=== PATIENT | male | born 1970 | race Caucasian/White ===

== ENCOUNTER 2016-12-06 17:15 | Emergency (ER) | payer OTHER ==
[~2016-12-06] VITALS: Ht 182.9 cm; Wt 105.2 kg
[2016-12-06] MEDS ORDERED: VITAMIN B-1100 MG PO (18:17)
[2016-12-06] MEDS ORDERED: FOLIC ACID1 M1 PO (18:17)
[2016-12-06] MEDS ORDERED: CHLORDIAZEPOXID25 M3 PO (18:17)
[2016-12-06] MEDS ORDERED: DAILY MULTIPLE1 EACH PO (18:17)
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
[2016-12-07 06:06] VITALS: BP 143/85
== END 2016-12-07 06:52 ==
LOC: ERH 17:15
DX: F10.10 Alcohol abuse, uncomplicated (principal)
CPT/HCPCS: J3101

== ENCOUNTER 2017-01-02 13:25 | Inpatient (IN) | payer OTHER ==
[~2017-01-02] VITALS: Ht 177.8 cm; Wt 100.4 kg
[~2017-01-02 13:25] MED LIST: CHLORDIAZEPOXID25 M3 PO; DAILY MULTIPLE1 EACH PO; FOLIC ACID1 M1 PO; VITAMIN B-1100 MG PO
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
[2017-01-02 14:00] VITALS: BP 165/80
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
--- NOTE | 2017-01-02 15:30 | NUR ---
LABS DRAWN AND SENT
[2017-01-02 15:54] LABS: ABSOLUTE BASOPHIL COUNT 0 /CUMM (0.0-0.2); ABSOLUTE EOSINOPHIL COUNT 0 /CUMM (0.0-0.7); ABSOLUTE GRANULOCYTE CT 1.6 /CUMM (1.4-6.5); ABSOLUTE LYMPH COUNT 1.2 /CUMM (1.2-3.4); ABSOLUTE MONOCYTE COUNT 0.2 /CUMM (0.10-0.60); BASOPHIL % 1.3 % (0.0-2.0); EOSINOPHIL % 0.9 % (0-5); GRANULOCYTE % 51.3 % (42.2-75.2); HEMATOCRIT 40.1 % (42-52); MEAN CORPUSCULAR HGB 31.1 PG (27.0-31.0); MEAN CORPUSCULAR HGB CONC 34.4 G/DL (33.0-37.0); MEAN CORPUSCULAR VOLUME 90.4 FL (80.0-94.0); MEAN PLATELET VOLUME 8.3 FL (7.4-10.4); RBC DISTRIBUTION WIDTH 14.6 % (11.5-14.5); RED BLOOD CELL CT 4.43 /CUMM (4.70-6.10); WHITE BLOOD CELL COUNT 3.1 /CUMM (4.8-10.8)
[2017-01-02 15:55] LABS: PLATELET COUNT 79 /CUMM (130-400)
[2017-01-02 16:00] VITALS: BP 135/82
[2017-01-02] MEDS ORDERED: BUSPIRONE HCL15 M1 PO (16:06)
[2017-01-02 17:10] VITALS: BP 136/64
--- NOTE | 2017-01-02 17:30 | NUR ---
PT SLEEPING OFFERS. NO COMPLAINTS
--- NOTE | 2017-01-02 17:43 | NUR ---
REPORT GIVEN TO JOSE RODRIGUEZ. PT AMBULATORY TO RM 14 WITH STEADY GAIT. [id number]
--- NOTE | 2017-01-02 18:07 | NUR ---
PT RESTING ON BED, ASKING FOR SOMETHING, "LIKE PAIN MEDS OR SOMETHING TO HELP ME SLEEP. I'VE BEEN DRINKING TOO MUCH LATELY AND I'M ANNOYING MYSELF." PT OFFERED TELEVISION DISTRACTION.
[2017-01-02 19:11] VITALS: BP 148/72
--- NOTE | 2017-01-02 19:20 | NUR ---
AMB TO RESTROOM WITH STEADY GAIT. CALM/COOPERATIVE.
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
--- NOTE | 2017-01-02 21:54 | NUR ---
SLEEPING SOUNDLY WITH EASY WOB. SITTER IN PLACE.
[2017-01-02 22:31] VITALS: BP 149/85
--- NOTE | 2017-01-02 22:31 | NUR ---
PT SLEEPING SOUNDLY, AWAKENED FOR VITAL SIGNS. CIWA SCORE OF 4 AT THIS TIME. SITTER REMAINS IN PLACE.
[2017-01-03] VITALS (12 sets, daily range): BP systolic 122–161; BP diastolic 64–91
--- NOTE | 2017-01-03 00:24 | NUR ---
SLEEPING SOUNDLY WITH EASY WOB, SITTER IN PLACE.
--- NOTE | 2017-01-03 02:08 | NUR ---
pt cont to sleep soundly with easy wob. sitter in attendance.
--- NOTE | 2017-01-03 03:21 | NUR ---
sleeping soundly, even nonlabored respirations noted. sitter in place.
--- NOTE | 2017-01-03 04:40 | NUR ---
PT TREMULOUS AND SWEATY. MEDICATED WIHT 2 MG ATIVAN PO
--- NOTE | 2017-01-03 07:03 | NUR ---
PT AWAKENED FOR VITAL SIGNS. NOTED TO BE TREMULOUS AND COMPLAINING OF HEADACHED. MD AWARE. PIV ESTABLISHED. MEDICATED WITH 2MG IV ATIVAN ORDERED.
--- NOTE | 2017-01-03 07:30 | NUR ---
ASSUMED CARE. SLEEPING AT THIS TIME. SITTER IN ATTENDANCE.
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
--- NOTE | 2017-01-03 08:15 | NUR ---
EVALUATED BY CONTRACT ACCOUNTANT
--- NOTE | 2017-01-03 10:00 | NUR ---
SLEEPING, RESPIRATIONS NON-LABORED.
--- NOTE | 2017-01-03 11:00 | NUR ---
ALERT, CO-OPERATIVE, DENIES SI OR HI.
--- NOTE | 2017-01-03 11:34 | NUR ---
Pt needs inpt tx. Bed search being done
--- NOTE | 2017-01-03 12:50 | NUR ---
AWAKENED FOR VITAL SIGNS. ARMS TREMULOUS, REQUESTING MEDICATION.
--- NOTE | 2017-01-03 13:48 | NUR ---
Case mgmnt TSF: I went in and introduced myself to patient. He still is requesting detox. He gave verbal for me to submit to [facility] for potential auth. Patient has signed consents. CM continuing to update.
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
--- NOTE | 2017-01-03 15:48 | NUR ---
ASSUMED CARE OF PT, PT SLEEPING, REPORTING RECENT DOSE OF ATIVAN HAS IMPROVED HOW HE FEELS.
--- NOTE | 2017-01-03 16:01 | NUR ---
TRANSPORT CALLED FOR PT, TRANSPORT STATING THEY WILL CALL SECURITY WHEN THEY DISPATCH TRANSPORTERS.
[2017-01-04] VITALS (16 sets, daily range): BP systolic 116–157; BP diastolic 58–88
--- NOTE | 2017-01-04 02:56 | NUR ---
Awakened for CIWA q2hrs ATC. P.O fluids encouraged. Diaphoretic, alert and oriented, tremulous. Medicated at 0200 for a CIWA score of "8", vitals stable. Slept well otherwise withour complaint.
--- NOTE | 2017-01-04 12:01 | NUR ---
PT IS ISOALTVE IN ROOM FOR MOST OF THE SHIFT, SLEEPING. PT IS EASILY AWOKEN AND IS COMPLIANT WITH STAFF WHEN ASKED. PT REPROTS HEADACHE AND HAS SLIGHT TEMORS AT TIMES. PT SCORED THIS MORING, CIWA 11. 1000 CIWA WAS ONLY A 5. PT REPROTS SOME ANXIETY, PT MOOD IS STABLE WITH A CONSTRICTED AFFECT. PT DENIES SI THOUGHTS. PT IS NOT ATTENDING GROUPS.
--- NOTE | 2017-01-04 15:38 | SOCIAL WORKER TX PLAN PSYCH ---
Treatment Plan - Please Document: - Evidence that there is ongoing collaboration between - the patient and the interdisciplinary team, - including the patient's active participation and - responsibility for engaging in the treatment regimen, - and that the treatment plan is individualized and - relevant to the patient's conditions. - Treatment plan should reflect documentation indicating - that all active therapeutic efforts are included. Strengths/Capabilities: seeking treatment Physical Limitations (Interventions): none reported Patient Identified Trmt Goals: " I need to stop drinking" Discharge Plan: Rehab Problem/Goals #1 Problem #1: alcohol dependence/abuse Goal (Short Term): 1) Refrain from alcohol use 2) Identify 3 triggers for use 3) Identify 3 sober supports 4) Identify 3 coping skills Goal (Penitentiary): I will have family meeting on unit during my hospitalization I will attend all AA groups on unit I will Identify 3 coping skills for cravings to use I will set up aftercare for dual diagnosis program to address both mental health and substance abuse concerns Interventions: Learn ways to manage cravings to use substances accordingly and identify coping skills to prevent relapse from occurring due to anxious/depressed feelings. Modalities: Encourage groups, education on addiction, provide CBT treatment, family meeting. DSM5/PS Stressors/Medical Prob Diagnosis' (DSM 5, Stressors, Medical): Unspecified Depression F32.9, Alcohol Use Disorder severe F10.20 Current GAF: 25 Treatment Team - Responsibilities of members of the treatment team include: - Medication Management- MD or MANAGER ACUTE - Medication Administration and Monitoring- Nurse - Group Therapy- Occupational Therapist - 1:1 Therapy,Disch Planning,family involvement-Slubber Operator
--- NOTE | 2017-01-04 16:08 | SOCIAL WORKER PROG NOTE PSYCH ---
Social Work Progress Note Progress Note SW met with patient for the first time today. Patient found sleeping in his room this afternoon and had been sleeping for all of the morning/early afternoon. Patient reports not feeling well today and feeling depressed. He denied any current suicidal thoughts at present. Patient's mother and father will be coming in for a family meeting tomorrow at 2:30PM. Patient reported being open to talking to family during his stay although expressed concern over mother coming to the hospital due to her medical condition. Patients mother, Kylee, stated she would be fine coming to the hospital and wished to be part of her sons treatment. Patient denies SI/HI/AH/VH at present. Mood was sad and affect flat.
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
--- NOTE | 2017-01-04 17:57 | NUR ---
Patient admitted to [facility] from ED. Patient is disheveled but a ppropriate. Patient verbalizes need to get help. Patient reports never having sought help in the past and anxious toward "signs and symptoms" of w/d. Patient was educated to unit procedures and how monitoring will be conducted during his stay including CIWA and encouraging assistance with ADL's when needed. Patient speech incoherent and garbbled at times. When asked to repeat patient able to slow down tempo and speak clearly. Patient calm and cooperative. Denies SI at this time. Will continue monitor CIWA and mood and medicate as prescribed. Looking forward to assisting Tnoy with mental health.
--- NOTE | 2017-01-04 18:01 | History & Physical ---
General Information and HPI MD Statement: I have seen and personally examined NESHA EPPS and documented this H&P. The patient is a 46 year old M who presented with a patient stated chief complaint of patient requesting detox. "I drink whether he can get" and "my mom is dying so that makes me depressed". Source of Information: patient Exam Limitations: no limitations History of Present Illness: 46-year-old white male start drinking is a teenage is been drinking a large amount of alcohol every day denies any seizures O DVTs and states he is increasingly depressed due to the mother's illness denies suicidal ideations or homicidal ideations for all those reasons is admitted for evaluation and treatment Allergies/Medications Allergies: Coded Allergies: No Known Allergies (12/06/16) Home Med list Buspirone HCl 15 MG TABLET 1 TAB PO BID MENTAL HEALTH (Reported) Compliance With Home Meds: UNKNOWN Past History Travel History Traveled to [place] past 21 day No Medical History Neurological: NONE EENT: NONE Cardiovascular: NONE Respiratory: NONE Gastrointestinal: NONE Hepatic: NONE Renal: NONE Musculoskeletal: NONE Psychiatric: alcohol dependence, ADD Endocrine: NONE Blood Disorders: NONE Cancer(s): NONE Other Medical Hx: Complains of b/l athlete's foot. 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 Exam & Diagnostic Data Last 24 Hrs of Vital Signs/I&O Vital Signs Date Time Temp Pulse Resp B/P B/P Pulse O2 O2 Flow FiO2 Mean Ox Delivery Rate 01/04 1606 94 151/81 01/04 1556 94 151/81 01/04 1430 89 146/81 01/04 1222 91 144/74 01/04 1217 91 144/74 01/04 1027 78 146/73 01/04 0918 83 157/84 01/04 0806 96.9 87 146/85 01/04 0804 96.9 87 146/85 01/04 0611 97.7 75 140/76 01/04 0204 97.0 75 126/58 01/04 0010 97.7 70 116/62 01/03 2153 80 16 122/77 01/03 2015 78 97 142/81 01/03 2007 97.1 78 142/81 01/03 2007 97.1 78 142/81 Intake & Output 01/04 1600 01/04 0800 01/04 0000 Intake Total Output Total Balance Patient 221 lb Weight Physical Exam General Appearance Alert, Oriented X3, Cooperative Skin several tattoos HEENT Atraumatic, PERRLA, EOMI Neck Supple, No JVD Lymphatic Axillary nl, Cervical nl Cardiovascular Regular Rate, No Murmurs Lungs Clear to Auscultation Abdomen Normal Bowel Sounds, Soft, No Tenderness Neurological Exam Findings: nonfocal Cranial Nerves II through XII: Intact Extremities No Cyanosis, No Edema, Normal Pulses Vascular Normal Pulses, Pulses Symmetrical Last 24 Hrs of Labs/Ben: Laboratory Tests 01/02/17 1541: Urine Opiates Screen < 100.00, Methadone Screen < 40, Barbiturate Screen < 60, Ur Phencyclidine Scrn < 6.00, Amphetamines Screen < 100, U Benzodiazepines Scrn < 85, Urine Cocaine Screen < 50, Urine Cannabis Screen < 5.00 01/02/17 1527: Anion Gap 12, Estimated GFR > 60, BUN/Creatinine Ratio 15.0, Glucose 97, Calcium 8.7, Total Bilirubin 0.6, AST 471 H, ALT 389 H, Alkaline Phosphatase 227 H, Total Protein 7.1, Albumin 3.8, Globulin 3.3, Albumin/Globulin Ratio 1.2, Folate 12.6, TSH 0.688, Free T4 0.78, Thyroxine (T4) 5.4, CBC w Diff NO MAN DIFF REQ, RBC 4.43 L, MCV 90.4, MCH 31.1 H, RDW 14.6 H, MPV 8.3, Gran % 51.3, Lymphocytes % 38.4, Monocytes % 8.1, Eosinophils % 0.9, Basophils % 1.3, Absolute Granulocytes 1.6, Absolute Lymphocytes 1.2, Absolute Monocytes 0.2, Absolute Eosinophils 0, Absolute Basophils 0, PUBS MCHC 34.4, Serum Alcohol 280.0 Assessment/Plan As Ranked By This Provider Problem List: 1. Alcoholic hepatitis 2. ETOH abuse 3. Depressed affect Miscellaneous Miscellaneous Documentation Attending Case Discussed With: ANABELA GUTIERREZ,OMARI Escalera Primary Care Physician: PATIENT HAS NO PRIMARY CARE DR Patient sees these Specialists Psychiatry Level of Patient Care: [facility] Consults Needed: Consulting Specialty: Psychiatry Consulting Physician: Dr. Halsted Reason for Consult: alcohol excess alcohol dependency depression
--- NOTE | 2017-01-04 21:08 | NUR ---
PT IS VISIBLE ON UNIT, SOCIALIZING WITH PEERS AND WATCHING TV IN KITCHEN. COOPERATIVE AND COMPLIANT WITH STAFF. ATTENDED WRAP UP MEETING THIS EVENING. NO SCORE ON CIWA THIS EVENING. NO COMPLAINTS OR SI REPORTED. PT HAS A STABLE MOOD AND FULL RANGE AFFECT.
[2017-01-05] VITALS (13 sets, daily range): BP systolic 129–163; BP diastolic 79–98
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
--- NOTE | 2017-01-05 14:11 | NUR ---
PT VISIBLE IN THE MILIEU TODAY. HIS GOAL WAS TO ADJUST TO THE [facility]. HE HAS BEEN GOING TO GROUPS THROUGHOUT THE DAY, AND HAS SOME INTERACTIONS WITH PEERS. PT HAS BEEN COMPLIANT WITH STAFF DIRECTION, AND DENIES THOUGHTS OF HURTING SELF WHEN ASKED.
--- NOTE | 2017-01-05 16:12 | SOCIAL WORKER PROG NOTE PSYCH ---
Social Work Progress Note Progress Note Patient had family meeting today with this expert medical writer, his parents and Marialuisa Hogan APRN. Patients parents expressed extreme concern over patients alcoholism and the consequences that have occurred (legal issues) related to his substance abuse. Patients parents are adamant that patient can not return directly to their house post discharge from the hospital. They are in support of patient going to residential treatment following hospitalization. Patient has agreed with this plan as well and agreed to sign VICKI for the [facility] in order to secure temporary housing while waiting for rehab. Patient also signed VICKI for his P.O., [address], out of [address] and this expert medical writer left voicemail confirming patients admission and plan for discharge. Patient is aware that a call has been placed to his P.O. Patient denies SI/HI/AH/VH at present but reports feeling depressed and anxious regarding his discharge plan.
--- NOTE | 2017-01-05 20:48 | NUR ---
PT IS COOPERATIVE WITH STAFF AND PEERS, AND COMPLIANT WITH UNIT RULES. BOTH IN AND OUT OF MILIEU, PT WILL AT TIMES ISOLATE IN PT ROOM. WHILE IN MILIEU PT INTERACTS WELL WITH OTHERS. MOOD IS STABLE, AFFECT IS EUTHYMIC TO FULL RANGE, COMMUNICATION IS ORGANIZED AND APPEARS NORMAL IN ALL RESPECTS, AND APPETITE IS NORMAL. PT DENIES SI AT THIS TIME.
[2017-01-06] VITALS (11 sets, daily range): BP systolic 139–155; BP diastolic 68–100
--- NOTE | 2017-01-06 11:15 | CP SOUTH PROGRESS NOTE PSYCH ---
Psych (Inpt) Progress Note Progress Note Include the following elements, when applicable: Involvement in the active treatment of the patient with behavioral observations of the patient and the patient's response to the treatment. Review of the ongoing treatment process in the context of the treatment plan. Indication of how multi-disciplinary staff members are carrying out the treatment plan. Plans for future interventions and recommendations for revision of the treatment plan. Liaison with other physicians/providers. Progress Note: I discussed this patient's progress to date, current mental status, treatment process in the context of the treatment plan, and discharge planning with staff/ team in the daily morning inpatient team meeting. I also met with the patient myself in individual session. S: "I've been sleeping all day, I'm tired." O: Current Medications Sig/Celina Start time Last Medication Dose Route Stop Time Status Admin Clotrimazole 1 ANDRES BID 01/04 1144 AC 01/06 TOP 0855 Escitalopram Oxalate 5 MG 0800 01/05 1430 AC 01/06 PO 0854 Folic Acid 1 MG DAILY 01/04 1000 DC 01/06 PO 01/06 1001 0854 Gabapentin 300 MG 0800,1200,1600,2000 01/06 1200 AC PO Gabapentin 300 MG Q4P PRN 01/03 1700 DC 01/05 PO 2228 Ibuprofen 600 MG .STK-MED ONE 01/05 1522 DC PO 01/05 1523 Ibuprofen 600 MG Q4P PRN 01/03 1700 AC 01/06 PO 1103 Lorazepam 0.5 MG ONCE 01/09 0000 AC PO 01/09 0001 Lorazepam 0.5 MG Q6H 01/08 0000 AC PO 01/08 1801 Lorazepam 0.5 MG ONCE ONE 01/07 1800 AC PO 01/07 1801 Lorazepam 1 MG Q6H 01/07 0000 AC PO 01/07 1201 Lorazepam 1.5 MG Q12H 01/06 0600 AC 01/06 PO 01/06 1801 0648 Lorazepam 1 MG Q12H 01/06 0000 AC 01/06 PO 01/06 1201 0409 Lorazepam 1 MG ONE TIME ONE 01/05 1445 CAN PO 01/05 1446 Lorazepam 1.5 MG Q6 01/05 0600 DC 01/05 PO 01/05 1801 1729 Lorazepam 2 MG Q2P PRN 01/04 0945 AC PO Lorazepam 1 MG Q2P PRN 01/04 0945 AC PO Multivitamins 1 TAB DAILY 01/04 1000 AC 01/06 PO 0854 Nicotine 21 MG DAILY 01/04 1000 AC 01/06 TOP 0855 Thiamine HCl 100 MG DAILY 01/04 1000 DC 01/06 PO 01/06 1001 0855 Vital Signs Date Time Temp Pulse Resp B/P B/P Pulse O2 O2 Flow FiO2 Mean Ox Delivery Rate 01/06 1014 88 147/79 01/06 0804 82 147/91 01/06 0803 96.7 82 147/91 01/06 0655 71 139/68 01/05 2234 81 163/88 01/05 2001 97.6 96 129/94 01/05 1951 97.6 96 129/94 01/05 1815 87 162/95 01/05 1618 87 146/83 01/05 1600 87 146/83 01/05 1414 96 147/81 01/05 1235 88 150/80 01/05 1219 88 150/80 A: Chart, progress notes, labs, CIWA scores (last 24 hours: 0-9-7-2-4-3-5-2-1), and medication list were reviewed. Vital signs within normal limits. No new lab results today. Met with patient at 10:50AM this morning. He presented alert and oriented x 3. Expressed feeling "tired" from Ativan taper. Reported sleep and appetite were good. Minimal participation in milieu therapy. Appeared disheveled with mild malodor and fine b/l ue tremors. Reported completed daily adls. Eye contact was appropriate. Speech was normal in rate, tone and volume. Affect was constricted. Mood was "fine." I asked pt how he felt yesterday's family meeting went. He reported feelings resentment towards his step-father, "he pisses me off, always tells me what to do." Reviewed with patient that his father had been firm and set boundaries during family meeting due to underlying concern of patient's drinking and the consequences it has led to. Patient showed limited insight/ judgement into circumstance and impact of his drinking on his health, reporting "I'll only consider rehab for my mother." Motivation for sobriety seems low. He denied acute symptoms depression. Reported anxiety secondary to etoh withdrawal. Informed him that prn Gabapentin was ordered for anxiety/shakiness. Patient was agreeable to change prn Gabapentin to scheduled for anxiety/shakiness. He denied passive/active suicidal ideation, plans and intent. Denied homicidal ideation, auditory, tactile, and visual hallucinations. He denied paranoid thoughts. There was no evidence of delusions. Thought process was linear. Thought content was anxious and occasionally odd. Cognition was grossly intact. Patient reported tolerating all medication well and denied untoward effects. He was agreeable to continue taking meds. P: 1. Continue monitoring on unit for safety, mood and suicidal ideation. 2. Continue CIWA protocol for etoh withdrawal. Continue Ativan taper as ordered and utilize prn Ativan per protocol. 3. Continue Lexapro, consider increase as tolerated (NTE 10mg daily d/t liver fxn). 4. Change Gabapentin 300mg from prn to scheduled four times daily for anxiety/ shakiness. 5. Encourage participation in milieu groups. 6. Dispo planning per primary team.
--- NOTE | 2017-01-06 13:25 | SOCIAL WORKER PROG NOTE PSYCH ---
Social Work Progress Note Progress Note Patient found sleeping in his room this afternoon. Patient reports feeling tired but reports feeling less withdrawal from alcohol today. Patient continues to express some resistence to rehab and is hopeful that probation will not require it. I informed him that probation is aware that our recommendation is rehab and he most likely will need to attend. Patient is also aware that his parents state that he can not return to their home from the hospital but he seems to believe he could talk his mother into otherwise. [facility] today, following up on the fax I sent yesterday.
--- NOTE | 2017-01-06 14:43 | NUR ---
PT HAS NOT BEEN VISIBLE MUCH TODAY IN THE [place]. HE HAS BEEN OUT MORE AFTER LUNCH TIME BUT PRIOR TO THAT PT HAS SPENT MAJORITY OF THE TIME IN HIS ROOM. PT DID NOT ATTEND MUCH GROUPS TODAY, AND HAS SOME INTERACTIONS WITH PEERS. PT HAS BEEN COMPLIANT ABOUT GETTING HIS VITALS DONE. PT DENIES THOUGHTS OF HURTING HIMSELF WHEN ASKED.
--- NOTE | 2017-01-06 22:26 | NUR ---
PT IS COMPLIANT AND STABLE. WATCHES TV IN THE [employer] AND SOCIALIZES WITH OTHERS. DID NOT ATTEND ALL GROUPS BUT IS APOLOGETIC AND HOPES TO ATTEND THEM TOMORROW, DESPITE THE WEEKEND SCEHDULE. PT DENIES ANY THOUGHTS OF SI AT THIS TIME.
[2017-01-07] VITALS (8 sets, daily range): BP systolic 141–153; BP diastolic 80–96
--- NOTE | 2017-01-07 13:22 | CP SOUTH PROGRESS NOTE PSYCH ---
Psych (Inpt) Progress Note Progress Note Include the following elements, when applicable: Involvement in the active treatment of the patient with behavioral observations of the patient and the patient's response to the treatment. Review of the ongoing treatment process in the context of the treatment plan. Indication of how multi-disciplinary staff members are carrying out the treatment plan. Plans for future interventions and recommendations for revision of the treatment plan. Liaison with other physicians/providers. Progress Note: Stated that he is alright I guess. Stated that he feels he is getting better, that I dont feel so mean. Spoke about his previous paranoia (prior to admission ) that he thought someone was talking about him or after him. Has been active at times, went to groups then to bed. Sleep is good, appetite good. No tremors noted. Appears improving compared to previous notes. MSE: middle aged man, fair hygiene and grooming. Fair eye contact. Well related and pleasant overall. No psychomotor changes noted. Affect full to constricted. Mood neutral. Speech is wnl. Thought process is linear. Thought content positive for depressed mood but no thoughts of wanting to harm self/others. Denied hallucinations currently stated that he had them while intoxicated and paranoia recently, but improving since admission. Fair insight; fair judgment. A: 46 y/o man w/ hx dx of MDD, alcohol use d/o, admitted due to trying to hang self in context of depression due to mothers illness and due to alcohol intoxication. Appears to be improving clinically. No tremors, shakiness and withdrawal is being managed. P: Target risk factors/active sx (residual depressive sx, etoh withdrawal,) w/ medication; CIWA, vitals monitoring. Engage in milieu, exercise and groups. Continue current meds.
--- NOTE | 2017-01-07 21:29 | NUR ---
PT IS CALM, COOPERATIVE WITH STAFF AND PEERS, AND COMPLIANT WITH UNIT RULES. PT IS OFTEN IN [facility], INTERACTING WELL WITH OTHERS. MOOD IS STABLE, AFFECT IS EUTHYMIC TO FULL RANGE, COMMUNICATION IS ORGANIZED AND APPEARS NORMAL IN ALL RESPECTS, AND APPETITE IS NORMAL. PT DENIES SI AT THIS TIME.
[2017-01-08] VITALS (8 sets, daily range): BP systolic 130–160; BP diastolic 65–93
--- NOTE | 2017-01-08 05:37 | NUR ---
PT WITH LOW CIWAs. PT COMPLAINING OF HEADACHE, BLURRED VISION ON EVENING. PT SOCIAL. PT APPEARED TO SLEEP.
--- NOTE | 2017-01-08 11:52 | NUR ---
Tony was visible throughout the shift. He attended both groups. Socail and pleasant with peers and staff. He denies SH/HI/SI. c/o a headache and motrin given with some relief. he states its from a previous fall off 10 feet. No visitors expected today.
--- NOTE | 2017-01-08 12:12 | CP SOUTH PROGRESS NOTE PSYCH ---
Psych (Inpt) Progress Note Progress Note Include the following elements, when applicable: Involvement in the active treatment of the patient with behavioral observations of the patient and the patient's response to the treatment. Review of the ongoing treatment process in the context of the treatment plan. Indication of how multi-disciplinary staff members are carrying out the treatment plan. Plans for future interventions and recommendations for revision of the treatment plan. Liaison with other physicians/providers. Progress Note: Said that he is having blurry vision and double vision at times, unchanged over last days; is unclear whether this happened prior to getting to the hospital or since his fall leading to admission. Also c/o back/neck pain. Otherwise, stated that he is doing well, feels calmer over the last few days; depression improving. Sleep and appetite are good. MSE: middle aged man, fair hygiene and grooming. Eye contact is good, well related. No tremor noted. Affect is full overall. Mood is good. Speech is wnl. Thought process is goal directed. Thought content negative for depressed mood or thoughts of wanting to harm self/others. Denied hallucinations currently stated though he hears buzzing in his ears since the fall at times. Fair insight ; fair judgment. A: 46 y/o man w/ hx dx of MDD, alcohol use d/o, admitted due to trying to hang self in context of depression due to mothers illness and due to alcohol intoxication. Appears to be improving clinically. No tremors, shakiness and withdrawal is being managed; but having some blurry vision and ringing in ears. P: Target risk factors/active sx (residual depressive sx, etoh withdrawal,) w/ medication; CIWA, vitals monitoring. Engage in milieu, exercise and groups. Continue current meds. Medical sx may be residual from his fall or withdrawal, will ask hospitalist to eval him.
--- NOTE | 2017-01-08 22:01 | NUR ---
PT IS CALM, COOPERATIVE WITH STAFF AND PEERS, AND COMPLIANT WITH UNIT RULES. PT IS OFTEN IN [place], INTERACTING WELL WITH OTHERS. MOOD IS STABLE, AFFECT IS FULL RNAGE, COMMUNICATION IS ORGANIZED AND APPEARS NORMAL IN ALL RESPECTS, AND APPETITE IS NORMAL. PT DENIES SI AT THIS TIME.
--- NOTE | 2017-01-09 07:13 | NUR ---
PT APPEARED TO SLEEP WELL. PT APPEARS LESS DEPRESSED. PT COMPLAINED LESS ABOUT BLURRY EYESIGHT LAST EVENING.
[2017-01-09 08:14] VITALS: BP 126/65
[2017-01-09 08:15] VITALS: BP 126/65
--- NOTE | 2017-01-09 11:30 | NUR ---
PT IS COMPLIANT AND COOPERATIVE WITH UNIT RULES. PT HAS BEEN ISOALTIVE IN ROOM FOR MOST OF THE SHIFT, ATTENDING SOME GROUPS. PT MOOD IS STABLE WTIH A CONSTRICTED AFFECT. PT DENIES SI THOUGHTS. PT IS NOT SCORING ON HIS CIWA ASSESSMENT.
--- NOTE | 2017-01-09 11:51 | CP SOUTH PROGRESS NOTE PSYCH ---
Psych (Inpt) Progress Note Progress Note Include the following elements, when applicable: Involvement in the active treatment of the patient with behavioral observations of the patient and the patient's response to the treatment. Review of the ongoing treatment process in the context of the treatment plan. Indication of how multi-disciplinary staff members are carrying out the treatment plan. Plans for future interventions and recommendations for revision of the treatment plan. Liaison with other physicians/providers. Progress Note: I discussed this patient's progress to date, current mental status, treatment process in the context of the treatment plan, and discharge planning with staff/ team in the daily morning inpatient team meeting. I also met with the patient myself in individual session. S: "I'm not having the shakes anymore, I feel better." O: Current Medications Sig/Celina Start time Last Medication Dose Route Stop Time Status Admin Clotrimazole 1 ANDRES BID 01/08 2200 DCD 01/09 TOP 0852 Escitalopram Oxalate 5 MG 0800 01/05 1430 DCD 01/09 PO 0852 Gabapentin 300 MG 0800,1200,1600,2000 01/06 1200 DCD 01/09 PO 1214 Ibuprofen 1,200 MG .STK-MED ONE 01/08 1601 DC PO 01/08 1602 Ibuprofen 600 MG Q4P PRN 01/03 1700 DCD 01/09 PO 1215 Lorazepam 0.5 MG 0800 01/09 0800 DC 01/09 PO 01/09 0801 0853 Lorazepam 0.5 MG ONCE 01/09 0000 DC PO 01/09 0001 Lorazepam 0.5 MG Q6H 01/08 0000 DC 01/08 PO 01/08 1801 1731 Lorazepam 2 MG Q2P PRN 01/04 0945 DCD PO Lorazepam 1 MG Q2P PRN 01/04 0945 DCD PO Multivitamins 1 TAB DAILY 01/04 1000 DCD 01/09 PO 0852 Nicotine 21 MG DAILY 01/04 1000 DCD 01/09 TOP 0852 Vital Signs Date Time Temp Pulse Resp B/P B/P Pulse O2 O2 Flow FiO2 Mean Ox Delivery Rate 01/09 1221 80 144/84 01/09 1221 80 144/84 01/09 0815 96.8 82 126/65 01/09 0814 96.8 82 126/65 01/08 2005 95.9 80 130/84 01/08 2003 95.9 80 130/84 01/08 1620 79 158/93 01/08 1558 79 158/93 A: Met with the patient today at 12PM, on the date of discharge. He presented alert and oriented to person, place, time and situation. Speech was normal in rate, tone and volume. Affect was full-range, non-labile. Mood was "good". There was no evidence of objective signs of alcohol withdrawal, or reported subjective symptoms. Ativan taper was completed today. He had no complaints besides for minor headache which has been helped by prn Ibuprofen. He denied acute symptoms of anxiety and depression. He denied racing thoughts. He denied passive and active suicidal ideation, plans and intent. He denied homicidal ideation, auditory and visual hallucinations, and paranoia. There was no evidence of delusions. Thought process was linear and goal-directed. Insight and judgment were limited. He stated and also believed he will not harm himself or others. He identified protective factors of his mother and children. Patient denied urges/cravings to use alcohol. Education was provided to patient on AA/NA meetings, and to obtain a sponsor for support in sobriety. Patient was agreeable to follow-up at [facility], for dual tx services. Melvi Casiano LCSW confirmed that patient could temporarily reside at his Cousin Santino's house in [place], [place]. Patient reported tolerating medications well and denied untoward medication effects. P: 1. Discharge today to cousin's home. 2. All discharge prescriptions were printed, reviewed and provided to patient on discharge. 3. F/u at [facility] in [facility] for intake today, 01/09/17, before 3PM. 4. F/u at [facility] in [place], [place] for PCP appointment with Dr. Juarez on 01/20/17 at 2PM for elevated LFTs and Hep C. 5. In the event of an emergency, call 911/go to nearest emergency department. Patient verbalized understanding of instructions.
--- NOTE | 2017-01-09 12:04 | SOCIAL WORKER PROG NOTE PSYCH ---
Social Work Progress Note Progress Note Pt can walk in the [facility] in [place] at [address] Monday between 1230 and 3p and/or for an intake. Pt has done an intake with them before and will be welcomed back. Met with pt this morning he complained of some headache pain but otherwise is preapred for discharge. He will stay with his cousin Santino and attend [facility] IOP in [place]. Pt agrees and denies si/hi/ah/vh.
[2017-01-09 12:21] VITALS: BP 144/84
--- NOTE | 2017-01-09 12:44 | SOCIAL WORKER PROG NOTE PSYCH ---
Social Work Progress Note Progress Note Made pt a follow up appointment on MondayJanuary 20 2:00pm at [address] [facility] [address] Juarez for primary care.
[2017-01-09] MEDS ORDERED: ONE DAILY MULT1 EAC2 PO (12:48)
[2017-01-09] MEDS ORDERED: LEXAPRO5 M1 PO (12:48)
[2017-01-09] MEDS ORDERED: GABAPENTIN300 M2 PO (12:48)
[2017-01-09] MEDS ORDERED: NICOTINE PATCH1 EAC3 TOP (12:48)
[2017-01-09] MEDS ORDERED: CLOTRIMAZOLE15 GM TOP (12:48)
--- NOTE | 2017-01-09 13:29 | DISCHARGE SUMMARY REPORT-PSYCH ---
Visit Information Visit Dates/Diagnosis' Admission Date: 01/03/17 Discharge Date: 01/09/17 Reason for Admission: Alcohol detox; Suicidal ideation and prior attempt by hanging himself 1 week prior to admission. Psy Discharge Primary Diag: Unspecified Depression Psy Discharge Secondary Diag: Alcohol use disorder, severe; Hepatitis C; Tinea pedis. Hospital Course Significant Lab Findings: Lab ALT 389 U/L H 01/02/17 1527 AST 471 U/L H 01/02/17 1527 Alkaline Phosphatase 227 U/L H 01/02/17 1527 Hct 40.1 % L 01/02/17 1527 Hgb 13.8 G/DL L 01/02/17 1527 MCH 31.1 PG H 01/02/17 1527 Plt Count 79 /CUMM L 01/02/17 1527 RBC 4.43 /CUMM L 01/02/17 1527 RDW 14.6 % H 01/02/17 1527 WBC 3.1 /CUMM L 01/02/17 1527 Hepatitis C Antibody REACTIVE H 12/12/16 1531 Serum Alcohol 280.0 MG/DL 01/02/17 1527 Course Complications: None. Consultations: The patient was seen for admission history and physical by convention services manager Dr. Julio Hopkins. Please see his note for additional information. Allergies: Coded Allergies: No Known Allergies (12/06/16) Hospital Course/TX Response: The patient was monitored on the unit for safety, suicidal ideation, mood and alcohol withdrawal. He was started on an Ativan taper for alcohol withdrawal and successfully completed it without complications. He participated in multimodal treatments on the unit. He was started on Gabapentin 300mg four times a day for anxiety. Lexapro 5mg daily was additionally started for anxiety/depression. He reported tolerating medications well and denied untoward medication effects. During the hospital course, the patient's mood and affect improved. Suicidal ideation remitted. A family meeting was held with the patient, his mother, his step-father, Velia Palmer LCSW and this engineering writer. The patient's treatment progress to date, medication regimen, level of safety, and discharge planning were reviewed and discussed. The patient's mother and step-father expressed their concerns were related to the patient's chronic substance abuse and ongoing legal consequences. The patient's mother and step-father informed the patient that he was not welcome back to their home post-discharge. Primary team's recommendation was for patient to pursue residential substance abuse rehab. He was ambivalent about this recommendation, reported he would prefer to resume [facility] for dual treatment. A referral was made to [facility] for patient, however during inpatient stay, there was no bed availability. The patient was in favor of following-up at [facility] and reaching out to [facility] regarding bed availability. The patient was also in favor of temporarily residing with his Cousin Santino in [place], [place] post-discharge. On the date of discharge, 01/09/17, the patient presented alert and oriented to person, place, time and situation. Speech was normal in rate, tone and volume. Affect was full-range, non-labile. Mood was "good". There was no evidence of objective signs of alcohol withdrawal, or reported subjective symptoms. Ativan taper was completed today. He had no complaints besides for minor headache which has been helped by prn Ibuprofen. He denied acute symptoms of anxiety and depression. He denied racing thoughts. He denied passive and active suicidal ideation, plans and intent. He denied homicidal ideation, auditory and visual hallucinations, and paranoia. He stated and also believed he will not harm himself or others. He identified protective factors of his mother and children. There was no evidence of delusions. Thought process was linear and goal-directed. Insight and judgment were limited. Patient denied urges/cravings to use alcohol. Education was provided to patient on AA/NA meetings, and to obtain a sponsor for support in sobriety. Patient was agreeable to follow-up at [facility], for dual tx services. Melvi Casiano LCSW confirmed that patient could temporarily reside at his Cousin Santino's house in [place], [place]. Patient reported tolerating medications well and denied untoward medication effects. He reported feeling safe and ready for discharge. Discharge HBIPS - Tobacco Use Treatment Offered Post DC Medications Offered: Script Given-See Med List Post DC Tobacco Treatment Plan: Refused Tobcco Tx Pgm - EtOH/Drug Use D/O Treatment Offered Post DC Medications Offered: Ref Med EtOH/Drug Use D/O Post DC EtOH/SubAbuse TX Plan: Other SubAbuse/Dual Pgm Program Appt Date: 01/09/17 Metabolic Screening - Screen if on a Neuroleptic Medication - Metabolic screening should include: - Blood Pressure, BMI, Glucose or Hgb A1c, & a - Lipid profile from within the past 365 days. Metabolic Screening ([X]) Not Applicable, patient not on a neuroleptic. OR () Patient on a neuroleptic(s) . Enter below results for Glucose or Hemoglobin A1C, and lipid panel if obtained during the last 365 days. BMI: 31.700 Blood Pressure: 144/84 Laboratory Results (If applicable): n/a Discharge Instructions General Discharge Information Discharge Medications: Discharge Medications- (Dose, route, freq, indication): START taking these NEW Home Medications: Nicotine (Nicotine Dose: On the skin, DAILY for Qty: 14 Printed Patch) 21 MG/24 HOUR 21 Milligram tobacco cessation Refills: 0 PATCH.TD24 Apply 1 patch topically QAM and remove before HS. Last Taken:01/09/17 Time:0900 Gabapentin Dose: ORAL, Qty: 56 Printed (Gabapentin) 300 MG 300 Milligram 0800,1200,1600,2000 for Refills: 0 CAPSULE anxiety Take 1 capsule by mouth four times daily. Last Taken:01/09/17 Time:1200 Escitalopram Oxalate Dose: ORAL, DAILY @8 AM for Qty: 14 Printed (Lexapro) 5 MG 5 Milligram depression/anxiety Refills: 0 TABLET Take 1 tablet by mouth every morning. Last Taken:01/09/17 Time:0900 Clotrimazole Dose: On the skin, TWICE DAILY Qty: 1 Printed (Clotrimazole) 1 % 1 Application for Tinea pedis Refills: 0 CREAM..G. Apply 1 application topically twice daily. Last Taken:01/09/17 Time:0900 Multivitamin (One Dose: ORAL, DAILY for VITAMIN Qty: 14 Printed Daily Multivitamin) 1 Tablet SUPPORT Refills: 0 1 EACH TABLET Take 1 tablet by mouth every morning. Last Taken:01/09/17 Time:0900 STOP taking these DISCONTINUED Home Medications: Buspirone HCl (Buspirone HCl) Dose: ORAL, TWICE DAILY for MENTAL 15 MG TABLET 1 Tablet HEALTH Reason Stopped: Per Doctor Decision Your Preferred Pharmacy [facility]/pharmacy #[id number] [place] [address] Multiple Neuroleptics: ([X]) Not Applicable OR Document below three failed attempts at monotherapy, or a plan to taper to monotherapy, or augmentation of Clozapine. () Patient's Diet: Regular. Patient's Activity: No restrictions. DC Disposition: Patient to discharge to his Cousin Santino's home in [place], [place]. Recommendations: The patient was advised to please take his medications as prescribed. He was advised to abstain from all substances. He was advised to attend daily AA/NA meetings and to obtain a sponsor for support in sobriety. He was advised to follow-up with [facility] regarding bed availability. He was advised to follow-up with [facility] and scheduled appointment with new PCP Dr. Nicole. He was advised that in the event of an emergency, call 911/go to nearest emergency department. Patient verbalized understanding of all instructions. Referred To: Post Discharge Referrals Provider Referral Service Date: 01/20/17 Referred To: [Dr. Nicole - Primary Care] Notes: [address] [place] [address] (t)[phone] *PCP appointment scheduled with Dr. Nicole on 01/20/17 at 2PM. Provider Referral Service Date: 01/09/17 [facility] To: [facility] ] Notes: [address] [place] [id number] (t)[phone] * Walk-in IOP intake appointments on Mondays and from 12:30PM - 3PM. Attend today, before 3PM. The [address] [id number] (t)[phone] Copies To: MORA WONG; SORIN NICOLE MD; [facility]
--- NOTE | 2017-01-09 13:39 | NUR ---
PT IS SCHEDULED FOR [place] [facility] [place]. HE REPORTS AND DEMONSTRATES IMPROVEMENT IN HIS MOOD AND ABILITY TO FUNCTION. HE DENIES ANY THOUGHTS OF SUICIDE OR SELF HARM. HIS DETOX IS COMPLETE AND HE WAS MONITORED FOR S/S WITHDRAWAL VIA [facility]. VSS AT THIS TIME. PT VERBALIZES A DESIRE TO BE CLEAN AND SOBER AND [facility]RE[facility]. PT IS GIVEN EDUCATION ON MANAGING HIS DEPRESSION AND ON SUICIDE PREVENTION
== END 2017-01-09 14:06 | DRG 754 ==
LOC: ERH 13:25 → CP SOUTH 01-03 15:47 → ERHI 01-03 15:47 → EDBEDREQ 01-03 15:50 → CP SOUTH 01-03 16:28 → ENPENDDIS 01-09 17:00
PROVIDERS: Emergency Medicine; ADMIT Psychiatry & Neurology Addiction Medicine
DX: F32.9 Major depressive disorder, single episode, unspecified (principal); F10.20 Alcohol dependence, uncomplicated; B19.20 Unspecified viral hepatitis C without hepatic coma; B35.3 Tinea pedis
CPT/HCPCS: 80307; G0480; J3490